=== PATIENT | male | born 1980 | race Caucasian/White ===

== ENCOUNTER 2019-01-19 08:27 | Outpatient (REF) | payer OTHER, SELFPAY ==
[2019-01-18 20:45] LABS: Anion Gap 7.6 mmol/L (3-11); BUN 15 mg/dL (7-18); CO2 28.4 mmol/L (21.0-32.0); CREATININE 0.98 mg/dL (0.70-1.30); Calcium 9.4 mg/dL (8.5-10.1); Chloride 103 mmol/L (98-107); Cholesterol 237 mg/dL (50-200); Glucose 89 mg/dL (70-100); HDL Cholesterol 40 mg/dL (40-60); LDL CHOLESTEROL 148 mg/dL (<100); Sodium 139 mmol/L (136-145); Triglyceride 227 mg/dL (30-150)
== END 2019-01-19 08:47 ==
LOC: NCHCN 08:27
PROVIDERS: PCP Physician Assistant; Visit Provider Physician Assistant Medical
DX: Z00.00 Encounter for general adult medical examination without abnormal findings (principal); Z13.228 Encounter for screening for other metabolic disorders; Z13.220 Encounter for screening for lipoid disorders
CPT/HCPCS: 80048; 80061; 83721

== ENCOUNTER 2020-08-10 14:57 | Outpatient (REF) | payer OTHER, SELFPAY ==
[2020-08-10 19:52] LABS: Anion Gap 9.6 mmol/L (3-11); BUN 13 mg/dL (7-18); CO2 28.4 mmol/L (21.0-32.0); CREATININE 0.86 mg/dL (0.70-1.30); Calcium 9.1 mg/dL (8.5-10.1); Calculated LDL 147 mg/dL (<100); Chloride 105 mmol/L (98-107); Cholesterol 224 mg/dL (<200); Glucose 96 mg/dL (74-106); HDL Cholesterol 46 mg/dL (40-60); Potassium 4.2 mmol/L (3.5-5.1); Sodium 143 mmol/L (136-145); Triglyceride 155 mg/dL (<150)
== END 2020-08-10 15:17 ==
LOC: NCHCN 14:57
PROVIDERS: PCP Physician Assistant Medical; Visit Provider Physician Assistant Medical
DX: R03.0 Elevated blood-pressure reading, without diagnosis of hypertension (principal)
CPT/HCPCS: 80048; 80061

== ENCOUNTER 2021-11-09 16:00 | Outpatient (REF) | payer OTHER, SELFPAY ==
[2021-11-09 14:48] LABS: Anion Gap 9.9 mmol/L (3-11); BUN 8 mg/dL (7-18); CO2 27.1 mmol/L (21.0-32.0); CREATININE 0.8 mg/dL (0.70-1.30); Calcium 9.3 mg/dL (8.5-10.1); Calculated LDL 147 mg/dL (<100); Chloride 105 mmol/L (98-107); Cholesterol 214 mg/dL (<200); Glucose 87 mg/dL (74-106); HDL Cholesterol 42 mg/dL (40-60); Sodium 142 mmol/L (136-145); Triglyceride 127 mg/dL (<150)
== END 2021-11-09 16:01 | disposition home or self-care (01) ==
LOC: LBN 16:00
PROVIDERS: PCP Physician Assistant Medical; Visit Provider Physician Assistant Medical
DX: R03.0 Elevated blood-pressure reading, without diagnosis of hypertension (principal)
CPT/HCPCS: 80048; 80061

== ENCOUNTER 2023-02-03 13:47 | Emergency (ER) | payer OTHER, SELFPAY ==
--- NOTE | 2023-02-03 13:45 | RT.EKG_ITS ---
APPROVED REPORT Exam: Resting ECG Reason for Exam: rapid HR Patient Location: E HR:80 bpm ECG Measurements Heart Rate 80 AXIS IN 122 P 78 QRSd 94 QRS 37 QT 355 T 4 QTc 409 Conclusion Sinus rhythm...normal P axis, V-rate 60- 99. Sinus. Normal axis. Normal intervals. No STEMI. I have reviewed and interpreted ECG and agree with software generated interpretation.
[2023-02-03 13:51] VITALS: BP 141/90; PULSE 120; RESP 20; TEMP 36.7; O2SAT 99
[2023-02-03 14:24] LABS: Abs Immature Grans 0.02 10^3/uL (0.0-0.06); Absolute Basophil Count 0.12 10^3/uL (0.0-0.2); Absolute Lymphocyte Count 2.67 10^3/uL (1.2-3.4); Absolute Neutrophil Count 3.59 10^3/uL (1.2-6.7); Basophils % 1.7; Eosinophils % 1.4; HCT 44.9 % (40.0-50.0); HGB 15.4 g/dL (13.5-17.5); Immature Grans % 0.3; Lymphocytes % 37.6; MCH 28.9 pg (27.0-33.0); MCHC 34.3 % (32.0-36.0); MCV 84 fL (80-95); MPV 8.9 fL (8.0-11.0); Monocytes % 8.5; Neutrophils % 50.5; Platelet Count 306 10^3/uL (130-400); RBC 5.32 10^6/uL (4.36-5.78); RDW 12.4 % (11.8-14.1); RDW-SD 37.9 fL
[2023-02-03 14:47] LABS: ALT 14 U/L (16-63); AST 11 U/L (15-37); Albumin 4.4 g/dL (3.4-5.0); Alkaline Phosphatase 87 U/L (46-116); Anion Gap 8.2 mmol/L (3-11); BUN 9 mg/dL (7-18); Bilirubin, Total 0.9 mg/dL (0.2-1.0); CO2 29.8 mmol/L (21.0-32.0); Calcium 9.6 mg/dL (8.5-10.1); Chloride 103 mmol/L (98-107); Estimated GFR 95.77 (mL/min/1.73m2); Glucose 124 mg/dL (74-106); Magnesium 2.1 mg/dL (1.8-2.4); Potassium 3.5 mmol/L (3.5-5.1); Sodium 141 mmol/L (136-145); Total Protein 7.7 g/dL (6.4-8.2); Troponin I < 50 ng/L (<or=60)
[2023-02-03 14:57] LABS: D-Dimer 145 ng/mlFEU (<500)
--- NOTE | 2023-02-03 15:17 | ED.GENADUL_ITS ---
Discharge Plan Disposition Patient Disposition: Home Condition: Improving Discharge Details Clinical Impression: Muscle spasm Primary Care Provider: Jennifer Diaz ED Provider: Tanner Cummings Home Meds and New Rx's Prescriptions: New cyclobenzaprine 5 mg tablet 5 mg PO QHS PRN (Reason: muscle spasm) Qty: 10 0RF No Action lorazepam 1 mg Tablet 1 mg PO DAILY PRN Discharge Instructions Instructions: Muscle Spasm (ED) Medical Decision Making 42-year-old male history of anxiety presents with spasming and fasciculation of left pectoralis major muscle. No associated nausea vomiting diaphoresis fevers chills or other systemic symptoms. Patient noted to be tachycardic on arrival. EKG normal sinus rhythm with a rate of 80 bpm nonischemic. Patient is low risk heart score and low risk from a thromboembolic standpoint. Low suspicion for ACS PE aortic pathology pneumothorax or pneumonia. Likely simple muscle spasm/fasciculation of pectoralis. Patient feeling better after lorazepam and rest. Will add cyclobenzaprine for muscle relaxation. Suggested warm shower bath and/or massage as well as stretching. Home care instructions and strict return precautions given HPI General Date/Time Provider Initiated Documentation: 02/03/23 14:09 . HPI Narrative: 42-year-old male history of anxiety presents with twitching of his left anterior chest wall and anxiety that began earlier today. Denies history of coronary artery disease or thromboembolic disease. Has had anxiety/panic attack in the past and took a lorazepam shortly before arrival. He is feeling some relief. No nausea vomiting sweating fevers chills or trouble breathing. Patient endorses psychosocial stressors both in personal life and professional life. Related Data Home Medications Medication Instructions Recorded Confirmed cyclobenzaprine 5 mg tablet 5 mg PO QHS PRN muscle spasm #10 02/03/23 tabs lorazepam 1 mg tablet 1 mg PO DAILY PRN 02/03/23 02/03/23 Previous Rx's Medication Instructions Recorded cyclobenzaprine 5 mg tablet 5 mg PO QHS PRN muscle spasm #10 02/03/23 tabs Allergies Allergy/AdvReac Type Severity Reaction Status Date / Time No Known Allergies Allergy Unverified 02/03/23 14:44 General Stated Complaint: Palpitatns SARMAD: 3 Review of Systems Narrative: Review of Systems Constitutional: negative Eyes: negative ENT: negative Cardiovascular: negative Respiratory: negative Gastrointestinal: negative : negative Musculoskeletal: Chest wall discomfort Skin: negative Neurologic: negative Psych: negative PFSH All Active Problems (Updated 02/03/23 @ 15:21 by Tanner Cummings MD) Muscle spasm (Acute) Surgical History (Updated 06/26/17 @ 09:46 by Larissa Jones) Appendectomy (06/18/17) Social History Smoking/Tobacco Use Status: Never Smoking risk assessment performed?: Yes Alcohol Intake: current Alcohol Intake frequency: holidays/special occasions only Drug use: Occasionally Substance use type: marijuana Do you feel safe at home: Yes Do you feel safe in your relationship?: Yes Exam Narrative Exam Narrative: Physical Examination General: alert, awake, cooperative, resting comfortably, no acute distress HEENT: normocephalic, atraumatic; PERRL, EOM intact, conjunctiva normal; no nasal discharge; moist mucous membranes, oral and pharyngeal mucosa normal, tolerating secretions Neck: supple, trachea midline; full ROM Chest: normal to inspection; spasming of left pectoralis major, with active fasciculation Respiratory: normal respiratory effort, speaking in full sentences, clear to auscultation, no wheezing, rales or rhonchi Cardiac: regular rate, regular rhythm, S1S2 intact, no murmurs rubs or gallops GI: abdomen soft, non-tender, non-distended; no palpable mass or hepatosplenomegaly Skin: no lesions, rashes or trauma appreciated Neuro: AAOx3, normal speech, moving all extremities Psych: Appropriate mood and affect Course Vital Signs Vital signs: Vital Signs Temperature 36.7 C 02/03/23 13:51 Pulse 120 H 02/03/23 13:51 Respiratory Rate 20 02/03/23 13:51 Blood Pressure 141/90 H 02/03/23 13:51 Pulse Oximetry 99 02/03/23 13:51 Temperature 36.7 C 02/03/23 13:51 Temperature Source Oral 02/03/23 13:51 Pulse 120 H 02/03/23 13:51 Respiratory Rate 20 02/03/23 13:51 Respiratory Effort Normal 02/03/23 14:32 Blood Pressure 141/90 H 02/03/23 13:51 Blood Pressure Position Sitting 02/03/23 13:51 Pulse Oximetry 99 02/03/23 13:51 Oxygen Delivery Method Room Air 02/03/23 13:51 Oxygen Flow Rate 0 02/03/23 13:51 Lab/Test Results Lab/Test Results: Laboratory Tests Range/Units 02/03/23 02/03/23 02/03/23 14:17 14:17 14:17 WBC (4.4-10.8) 10^3/uL 7.10 RBC (4.36-5.78) 10^6/uL 5.32 Hgb (13.5-17.5) g/dL 15.4 Hct (40.0-50.0) % 44.9 MCV (80-95) fL 84 MCH (27.0-33.0) pg 28.9 MCHC (32.0-36.0) % 34.3 RDW (11.8-14.1) % 12.4 Plt Count (130-400) 10^3/uL 306 MPV (8.0-11.0) fL 8.9 Immature Gran % 0.3 Neutrophils % 50.5 Lymphocytes % 37.6 Monocytes % 8.5 Eosinophils % 1.4 Basophils % 1.7 Nucleated RBC % (0.0-0.3) % 0.0 Absolute Neutrophils (1.2-6.7) 10^3/uL 3.59 Absolute Lymphocytes (1.2-3.4) 10^3/uL 2.67 Absolute Monocytes (0.1-0.8) 10^3/uL 0.60 Absolute Eosinophils (0.0-0.7) 10^3/uL 0.10 Absolute Basophils (0.0-0.2) 10^3/uL 0.12 D-Dimer (<500) ng/mlFEU 145 Sodium (136-145) mmol/L 141 Potassium (3.5-5.1) mmol/L 3.5 Chloride (98-107) mmol/L 103 Carbon Dioxide (21.0-32.0) mmol/L 29.8 Anion Gap (3-11) mmol/L 8.2 BUN (7-18) mg/dL 9 Creatinine (0.70-1.30) mg/dL 1.0 Est GFR (CKD-EPI 2020) (mL/min/1.73m2) 95.77 Glucose (74-106) mg/dL 124 H Calcium (8.5-10.1) mg/dL 9.6 Magnesium (1.8-2.4) mg/dL 2.1 Total Bilirubin (0.2-1.0) mg/dL 0.9 AST (15-37) U/L 11 L ALT (16-63) U/L 14 L Alkaline Phosphatase (46-116) U/L 87 Troponin I (<or=60) ng/L < 50 Total Protein (6.4-8.2) g/dL 7.7 Albumin (3.4-5.0) g/dL 4.4
[2023-02-03] MEDS: Cyclobenzaprine 10 MG TAB PO (15:27)
[2023-02-03 15:30] VITALS: BP 122/82; PULSE 85; RESP 17; O2SAT 95
== END 2023-02-03 17:50 | disposition home or self-care (01) ==
PROVIDERS: Physician Assistant; Emergency Provider Emergency Medicine; PCP Physician Assistant Medical
DX: M62.838 Other muscle spasm (principal); R00.0 Tachycardia, unspecified
CPT/HCPCS: 80053; 93005; 99283; 83735; 84484; 85025; 85379; 93010

== ENCOUNTER 2023-11-21 14:55 | Outpatient (REF) | payer OTHER, SELFPAY ==
[2023-11-21 15:40] LABS: Anion Gap 10.4 mmol/L (3-11); BUN 9 mg/dL (7-18); CO2 26.6 mmol/L (21.0-32.0); CREATININE 0.9 mg/dL (0.70-1.30); Calcium 9.3 mg/dL (8.5-10.1); Calculated LDL 133 mg/dL (<100); Chloride 105 mmol/L (98-107); Cholesterol 206 mg/dL (<200); Estimated GFR 108.01 (mL/min/1.73m2); Glucose 128 mg/dL (74-106); HDL Cholesterol 50 mg/dL (40-60); Potassium 3.5 mmol/L (3.5-5.1); Sodium 142 mmol/L (136-145); Triglyceride 119 mg/dL (<150)
== END 2023-11-21 14:56 | disposition home or self-care (01) ==
LOC: NCHCN 14:55
PROVIDERS: PCP Physician Assistant Medical; Referring Provider Physician Assistant Medical; Visit Provider Physician Assistant Medical
DX: R03.0 Elevated blood-pressure reading, without diagnosis of hypertension (principal)
CPT/HCPCS: 80048; 80061

== ENCOUNTER 2025-02-04 19:53 | Outpatient (REF) | payer OTHER, SELFPAY ==
[2025-02-04 17:11] LABS: ALT 21 U/L (16-63); AST 19 U/L (15-37); Albumin 4.1 g/dL (3.4-5.0); Alkaline Phosphatase 94 U/L (46-116); Anion Gap 6.9 mmol/L (3-11); BUN 10 mg/dL (7-18); Bilirubin, Total 0.5 mg/dL (0.2-1.0); CO2 29.1 mmol/L (21.0-32.0); CREATININE 0.9 mg/dL (0.70-1.30); Calcium 9.5 mg/dL (8.5-10.1); Calculated LDL 175 mg/dL (<100); Chloride 103 mmol/L (98-107); Cholesterol 252 mg/dL (<200); Estimated GFR 107.33 (mL/min/1.73m2); Glucose 101 mg/dL (74-106); HDL Cholesterol 44 mg/dL (>or=40); Potassium 4.5 mmol/L (3.5-5.1); Sodium 139 mmol/L (136-145); Total Protein 7.3 g/dL (6.4-8.2); Triglyceride 169 mg/dL (<150)
== END 2025-02-04 19:54 | disposition home or self-care (01) ==
LOC: NCHCN 19:53
PROVIDERS: PCP Physician Assistant Medical; Visit Provider Physician Assistant Medical
DX: I10 Essential (primary) hypertension (principal)
CPT/HCPCS: 80053; 80061